=== PATIENT | male | born 1970 | race Caucasian/White ===

== ENCOUNTER 2019-03-28 17:55 | Emergency (ER) | payer SELFPAY ==
[~2019-03-28] VITALS: Ht 167.6 cm; Wt 100.0 kg
[2019-03-28 17:55] VITALS: BP 140/93
[2019-03-28] MEDS ORDERED: LIDOCAINE 1% 10 ML VIAL INJ ONE (20:00)
[2019-03-28] MEDS ORDERED: BACITRACIN 0.9 GM PACKET OINTMENT TP ONE (20:00)
== END 2019-03-28 21:01 | disposition home or self-care (01) ==
LOC: EMS 17:57
DX: S91.311A Laceration without foreign body, right foot, initial encounter (principal); I10 Essential (primary) hypertension; W22.8XXA Striking against or struck by other objects, initial encounter; Y93.01 Activity, walking, marching and hiking; Y92.096 Garden or yard of other non-institutional residence as the place of occurrence of the external cause; Y99.0 Civilian activity done for income or pay
CPT/HCPCS: 12002; 99283; J3490

== ENCOUNTER 2020-08-08 11:40 | Emergency (ER) | payer SELFPAY ==
[~2020-08-08] VITALS: Ht 170.2 cm; Wt 72.7 kg
[2020-08-08] MEDS ORDERED: IBUPROFEN 600 MG TABLET PO ONE (13:30)
[2020-08-08 14:54] VITALS: BP 148/98
== END 2020-08-08 14:55 | disposition home or self-care (01) ==
LOC: EMS 11:44
DX: S13.4XXA Sprain of ligaments of cervical spine, initial encounter (principal); I10 Essential (primary) hypertension; V49.9XXA Car occupant (driver) (passenger) injured in unspecified traffic accident, initial encounter; Y93.89 Activity, other specified; Y92.89 Other specified places as the place of occurrence of the external cause; Y99.8 Other external cause status
CPT/HCPCS: 72040; 99283